=== PATIENT | male | born 1955 | race Hispanic/Latino ===

== ENCOUNTER 2023-05-17 14:11 | Outpatient (CLI) | payer BC | END 2023-05-17 14:12 | disposition home or self-care (01) | LOC: ULT 14:11 | PROVIDERS: ATTEND Family Medicine | DX: I86.1 Scrotal varices (principal); N50.89 Other specified disorders of the male genital organs | CPT/HCPCS: 76870; 93976 ==

== ENCOUNTER 2023-07-25 09:01 | Outpatient (CLI) | payer BC | END 2023-07-25 09:02 | disposition home or self-care (01) | LOC: SCSMRI 09:01 | PROVIDERS: ATTEND Family Medicine | DX: K76.9 Liver disease, unspecified (principal); Q44.6 Cystic disease of liver | CPT/HCPCS: 74183 ==

== ENCOUNTER 2023-08-21 08:21 | Outpatient (CLI) | payer BC, MEDICARE | END 2023-08-21 08:22 | disposition home or self-care (01) | LOC: SCSMRI 08:21 | PROVIDERS: ATTEND Family Medicine | DX: R19.00 Intra-abdominal and pelvic swelling, mass and lump, unspecified site (principal) | CPT/HCPCS: 72197 ==

== ENCOUNTER 2023-10-11 09:16 | Day surgery (SDC) | payer BC ==
[2023-10-01 09:28] VITALS: BMI 22.9
[2023-10-11] MEDS ORDERED: Ketorolac Tromethamine 30 MG (1 mL) VIAL ONE ×2 (10:23→13:59)
[2023-10-11] MEDS ORDERED: Acetaminophen 500 MG TAB ONE (10:23)
[2023-10-11] MEDS ORDERED: fentaNYL PF 100 MCG/2 ML SYRINGE ONE (12:08)
[2023-10-11] MEDS ORDERED: Lidocaine 1% PF 5 ML VIAL ONE (12:09)
[2023-10-11] MEDS ORDERED: Rocuronium Bromide 10 MG/ML (10ML VIAL) ONE (12:09)
[2023-10-11] MEDS ORDERED: PROPOFOL 20 ML ONE (12:09)
[2023-10-11] MEDS ORDERED: CEFAZOLIN 2 GM VIAL ONE (12:47)
[2023-10-11] MEDS ORDERED: Sodium Chloride 0.9% 100 ML ONE (12:47)
[2023-10-11] MEDS ORDERED: EPINEPHrine 1 MG/ML VIAL ONE (13:21)
[2023-10-11] MEDS ORDERED: Bupivacaine 0.25% HCL 30 ML VIAL ONE (13:21)
[2023-10-11] MEDS ORDERED: ePHEDrine Sulfate 50 MG/10 ML VIAL ONE (13:35)
[2023-10-11] MEDS ORDERED: Dexamethasone 20 MG/5 ML VIAL ONE (13:37)
[2023-10-11] MEDS ORDERED: Ketamine In 0.9 % NaCl 50 MG/5 ML SYRINGE ONE (13:59)
[2023-10-11] MEDS ORDERED: Glycopyrrolate 0.2 MG/ML 5 ML SYRINGE ONE (14:39)
[2023-10-11] MEDS ORDERED: NEOSTIGMINE 3 MG/3 ML SYR 3 MG/3 ML SYRINGE ONE (14:39)
[2023-10-11] MEDS ORDERED: Ondansetron PF 4 MG/2 ML Vial ONE (14:44)
[2023-10-11] MEDS ORDERED: oxyCODONE 5 MG TAB ONE (15:42)
== END 2023-10-11 20:15 | disposition home or self-care (01) ==
LOC: SDC 09:16
PROVIDERS: ATTEND Specialist
PROC: 0YU54JZ Supplement Right Inguinal Region with Synthetic Substitute, Percutaneous Endoscopic Approach (ICD-10-PCS; principal; 2023-10-11)
DX: K40.90 Unilateral inguinal hernia, without obstruction or gangrene, not specified as recurrent (principal); N40.0 Benign prostatic hyperplasia without lower urinary tract symptoms; Z79.899 Other long term (current) drug therapy; Z98.890 Other specified postprocedural states; Z79.01 Long term (current) use of anticoagulants
CPT/HCPCS: A4314; C1781; J0171; J0665; J1100; J1885; J2405; J2704; J3490